=== PATIENT | male | born 1955 | race Two or more races ===

== ENCOUNTER 2016-10-21 09:48 | Emergency (ER) | payer OTHER ==
[~2016-10-21] VITALS: Ht 177.8 cm; Wt 30.8 kg
[~2016-10-21 09:48] MED LIST: ALLO100T PO; FENO134C PO; HYDR-2595; STOOL SOFTENER PO; ZOLP10TA6 PO
[2016-10-21] MEDS ORDERED: LIDOCAINE 1% HCL (LOCAL ANESTH.) INJ 20ML MDV ONE (12:07)
[2016-10-21 12:11] VITALS: BP 132/81
[2016-10-21] MEDS ORDERED: TETANUS-DIPTH-ACEL PERTUSSIS 0.5ML SYRG IM ONE (12:15)
[2016-10-21] MEDS ORDERED: cefTRIAXone SOD 1,000 MG VL IM ONE (12:15)
== END 2016-10-21 13:04 | disposition home or self-care (01) ==
LOC: ER 09:48
DX: S61.210A Laceration without foreign body of right index finger without damage to nail, initial encounter (principal); L08.9 Local infection of the skin and subcutaneous tissue, unspecified; M10.9 Gout, unspecified; E78.5 Hyperlipidemia, unspecified; I10 Essential (primary) hypertension; Z23 Encounter for immunization; W45.8XXA Other foreign body or object entering through skin, initial encounter; Y93.89 Activity, other specified; Y99.8 Other external cause status; Y92.89 Other specified places as the place of occurrence of the external cause
CPT/HCPCS: 90471; 90715; 96372; 99284; J0696; J2001